=== PATIENT | female | born 1960 | race Caucasian/White ===

== ENCOUNTER 2020-03-11 12:39 | Inpatient (IN) | payer BC, SELFPAY ==
[~2020-03-11] VITALS: Ht 165.1 cm; Wt 153.8 kg
[2020-03-11 12:49] VITALS: Ht 165.1 cm; Wt 153.8 kg
[2020-03-11 14:57] LABS: BASOPHIL % 0.7 % (0.2-1.3); PLATELET COUNT 274 x10^3mcL (179-408)
[2020-03-11 15:05] LABS: RED CELL DISTRIBUTION WIDTH 17.3 % (12.3-17.7)
[2020-03-11 15:14] LABS: CALCIUM 8.9 mg/dL (8.5-10.1); CARBON DIOXIDE 28.2 mmol/L (21-32); CHLORIDE SERUM 99 mmol/L (98-107); CREATININE SERUM 0.9 mg/dL (0.6-1.0); GFR1 > 60 mL/min; GLUCOSE SERUM 119 mg/dL (74-106); POTASSIUM SERUM 4.6 mmol/L (3.5-5.1); SODIUM SERUM 138 mmol/L (136-145)
[2020-03-11 15:19] LABS: ALKALINE PHOSPHATASE 93 U/L (46-116); ALT/SGPT 26 U/L (14-59); AST/SGOT 50 U/L (15-37); BILIRUBIN TOTAL 0.83 mg/dL (0.20-1.00); TOTAL PROTEIN, SERUM 8.2 g/dL (6.4-8.2)
[2020-03-11 15:21] LABS: ALBUMIN 2.9 g/dL (3.4-5.0)
[2020-03-11 15:22] LABS: LACTIC DEHYDROGENASE (LDH) 697 U/L (100-190)
[2020-03-11 21:21] VITALS: BP 128/68
[2020-03-12] VITALS (7 sets, daily range): BP systolic 106–153; BP diastolic 65–84
[2020-03-12 06:04] LABS: BASOPHIL % 0.4 % (0.2-1.3); PLATELET COUNT 289 x10^3mcL (179-408)
[2020-03-12 06:09] LABS: RED CELL DISTRIBUTION WIDTH 17.3 % (12.3-17.7)
[2020-03-12 06:25] LABS: CALCIUM 8.7 mg/dL (8.5-10.1); CARBON DIOXIDE 34.9 mmol/L (21-32); CHLORIDE SERUM 99 mmol/L (98-107); CREATININE SERUM 0.8 mg/dL (0.6-1.0); GFR1 > 60 mL/min; GLUCOSE SERUM 113 mg/dL (74-106); POTASSIUM SERUM 4.3 mmol/L (3.5-5.1); SODIUM SERUM 139 mmol/L (136-145)
[2020-03-13] VITALS (21 sets, daily range): BP systolic 103–126; BP diastolic 62–82
[2020-03-13 13:00] LABS: BASOPHIL % 0.3 % (0.2-1.3); PLATELET COUNT 208 x10^3mcL (179-408)
[2020-03-13 13:06] LABS: RED CELL DISTRIBUTION WIDTH 16.2 % (12.3-17.7)
[2020-03-13 13:09] LABS: CALCIUM 8.5 mg/dL (8.5-10.1); CARBON DIOXIDE 31.6 mmol/L (21-32); CHLORIDE SERUM 101 mmol/L (98-107); CREATININE SERUM 0.8 mg/dL (0.6-1.0); GFR1 > 60 mL/min; GLUCOSE SERUM 114 mg/dL (74-106); MAGNESIUM 2.4 mg/dL (1.8-2.4); POTASSIUM SERUM 4.5 mmol/L (3.5-5.1); SODIUM SERUM 139 mmol/L (136-145)
[2020-03-14] VITALS (12 sets, daily range): BP systolic 114–159; BP diastolic 59–82
[2020-03-14 02:00] LABS: T3 TOTAL 0.52 ng/mL
[2020-03-14 02:11] LABS: FREE T4 1.28 ng/dL (0.76-1.46); FREE THYROXINE INDEX 2.4 ug/dL (1.4-4.5); T4(THYROXINE) 7.2 ug/dL (4.7-13.3)
[2020-03-14 02:19] LABS: CHOLESTEROL/HDL RATIO 4.9
[2020-03-14 07:04] LABS: PLATELET COUNT 152 x10^3mcL (179-408)
[2020-03-14 07:22] LABS: CALCIUM 8.7 mg/dL (8.5-10.1); CARBON DIOXIDE 27.5 mmol/L (21-32); CHLORIDE SERUM 101 mmol/L (98-107); CREATININE SERUM 0.9 mg/dL (0.6-1.0); GFR1 > 60 mL/min; GLUCOSE SERUM 106 mg/dL (74-106); MAGNESIUM 2.6 mg/dL (1.8-2.4); POTASSIUM SERUM 4.2 mmol/L (3.5-5.1); SODIUM SERUM 139 mmol/L (136-145)
[2020-03-14 10:58] LABS: RED CELL DISTRIBUTION WIDTH 16.7 % (12.3-17.7)
[2020-03-15] VITALS (10 sets, daily range): BP systolic 118–158; BP diastolic 64–82
[2020-03-15 06:32] LABS: BASOPHIL % 1.1 % (0.2-1.3); PLATELET COUNT 151 x10^3mcL (179-408)
[2020-03-15 06:51] LABS: MONOCYTE 8 % (0-7); SEGMENTED NEUTROPHILS 85 % (37-75)
[2020-03-15 06:52] LABS: rbc morphology (normal/abnorm) NORMAL (NORMAL)
[2020-03-15 07:08] LABS: RED CELL DISTRIBUTION WIDTH 17.3 % (12.3-17.7)
[2020-03-15 07:49] LABS: ALKALINE PHOSPHATASE 66 U/L (46-116); ALT/SGPT 19 U/L (14-59); AST/SGOT 22 U/L (15-37); BILIRUBIN TOTAL 0.85 mg/dL (0.20-1.00); CALCIUM 8.8 mg/dL (8.5-10.1); CHLORIDE SERUM 101 mmol/L (98-107); CREATININE SERUM 0.9 mg/dL (0.6-1.0); GFR1 > 60 mL/min; GLUCOSE SERUM 161 mg/dL (74-106); SODIUM SERUM 138 mmol/L (136-145); TOTAL PROTEIN, SERUM 7.4 g/dL (6.4-8.2)
[2020-03-15 07:53] LABS: ALBUMIN 2.5 g/dL (3.4-5.0)
[2020-03-15 14:03] LABS: BAND NEUTROPHIL 0 % (0-10)
[2020-03-16] VITALS (9 sets, daily range): BP systolic 123–154; BP diastolic 66–78
[2020-03-16 07:20] LABS: CALCIUM 8.9 mg/dL (8.5-10.1); CARBON DIOXIDE 29.4 mmol/L (21-32); CHLORIDE SERUM 100 mmol/L (98-107); CREATININE SERUM 0.8 mg/dL (0.6-1.0); GFR1 > 60 mL/min; GLUCOSE SERUM 170 mg/dL (74-106); POTASSIUM SERUM 4.2 mmol/L (3.5-5.1); SODIUM SERUM 137 mmol/L (136-145)
[2020-03-16 10:55] LABS: BASOPHIL % 0.6 % (0.2-1.3); PLATELET COUNT 152 x10^3mcL (179-408)
[2020-03-16 12:56] LABS: RED CELL DISTRIBUTION WIDTH 17.4 % (12.3-17.7)
[2020-03-17] VITALS (7 sets, daily range): BP systolic 109–141; BP diastolic 65–84
[2020-03-17 07:13] LABS: BASOPHIL % 0.4 % (0.2-1.3); PLATELET COUNT 152 x10^3mcL (179-408)
[2020-03-17 07:39] LABS: CALCIUM 9.3 mg/dL (8.5-10.1); CHLORIDE SERUM 102 mmol/L (98-107); CREATININE SERUM 0.8 mg/dL (0.6-1.0); GFR1 > 60 mL/min; GLUCOSE SERUM 151 mg/dL (74-106); POTASSIUM SERUM 4.7 mmol/L (3.5-5.1); SODIUM SERUM 138 mmol/L (136-145)
[2020-03-17 08:17] LABS: RED CELL DISTRIBUTION WIDTH 17.1 % (12.3-17.7)
[2020-03-17 13:27] LABS: rbc morphology (normal/abnorm) NORMAL (NORMAL)
[2020-03-18] VITALS (7 sets, daily range): BP systolic 99–150; BP diastolic 56–83
[2020-03-18 07:07] LABS: BASOPHIL % 0.3 % (0.2-1.3); PLATELET COUNT 153 x10^3mcL (179-408)
[2020-03-18 07:14] LABS: CALCIUM 9.4 mg/dL (8.5-10.1); CARBON DIOXIDE 31.1 mmol/L (21-32); CHLORIDE SERUM 101 mmol/L (98-107); CREATININE SERUM 0.8 mg/dL (0.6-1.0); GFR1 > 60 mL/min; GLUCOSE SERUM 121 mg/dL (74-106); POTASSIUM SERUM 5.2 mmol/L (3.5-5.1); SODIUM SERUM 137 mmol/L (136-145)
[2020-03-18 07:25] LABS: RED CELL DISTRIBUTION WIDTH 16.8 % (12.3-17.7)
[2020-03-19] VITALS (9 sets, daily range): BP systolic 119–189; BP diastolic 54–77
[2020-03-19 06:58] LABS: CALCIUM 9.2 mg/dL (8.5-10.1); CARBON DIOXIDE 29.1 mmol/L (21-32); CHLORIDE SERUM 101 mmol/L (98-107); CREATININE SERUM 0.9 mg/dL (0.6-1.0); GFR1 > 60 mL/min; GLUCOSE SERUM 114 mg/dL (74-106); POTASSIUM SERUM 4.8 mmol/L (3.5-5.1); SODIUM SERUM 136 mmol/L (136-145)
[2020-03-19 07:00] LABS: BASOPHIL % 0.2 % (0.2-1.3); PLATELET COUNT 136 x10^3mcL (179-408)
[2020-03-19 08:00] LABS: RED CELL DISTRIBUTION WIDTH 16.8 % (12.3-17.7)
[2020-03-20] VITALS (11 sets, daily range): BP systolic 117–170; BP diastolic 68–91
[2020-03-20 06:28] LABS: BASOPHIL % 0.1 % (0.2-1.3); PLATELET COUNT 138 x10^3mcL (179-408)
[2020-03-20 06:30] LABS: RED CELL DISTRIBUTION WIDTH 16.5 % (12.3-17.7)
[2020-03-20 06:50] LABS: ALKALINE PHOSPHATASE 90 U/L (46-116); ALT/SGPT 129 U/L (14-59); AST/SGOT 28 U/L (15-37); BILIRUBIN TOTAL 1.03 mg/dL (0.20-1.00); CARBON DIOXIDE 31.9 mmol/L (21-32); CHLORIDE SERUM 101 mmol/L (98-107); CREATININE SERUM 0.7 mg/dL (0.6-1.0); GFR1 > 60 mL/min; GLUCOSE SERUM 153 mg/dL (74-106); POTASSIUM SERUM 5.2 mmol/L (3.5-5.1); SODIUM SERUM 137 mmol/L (136-145)
[2020-03-20 06:58] LABS: ALBUMIN 2.5 g/dL (3.4-5.0)
[2020-03-21] VITALS (8 sets, daily range): BP systolic 120–148; BP diastolic 56–77
[2020-03-21 06:29] LABS: PLATELET COUNT 185 x10^3mcL (179-408)
[2020-03-21 06:32] LABS: BASOPHIL % 0 % (0.2-1.3); RED CELL DISTRIBUTION WIDTH 16.2 % (12.3-17.7)
[2020-03-21 06:48] LABS: CALCIUM 9.2 mg/dL (8.5-10.1); CARBON DIOXIDE 32.7 mmol/L (21-32); CHLORIDE SERUM 102 mmol/L (98-107); CREATININE SERUM 0.6 mg/dL (0.6-1.0); GFR1 > 60 mL/min; GLUCOSE SERUM 119 mg/dL (74-106); POTASSIUM SERUM 5.2 mmol/L (3.5-5.1); SODIUM SERUM 139 mmol/L (136-145)
[2020-03-22] VITALS (9 sets, daily range): BP systolic 119–136; BP diastolic 54–88
[2020-03-22 17:14] LABS: CALCIUM 8.2 mg/dL (8.5-10.1); CARBON DIOXIDE 30.2 mmol/L (21-32); CHLORIDE SERUM 108 mmol/L (98-107); CREATININE SERUM 0.6 mg/dL (0.6-1.0); GFR1 > 60 mL/min; GLUCOSE SERUM 136 mg/dL (74-106); POTASSIUM SERUM 4.2 mmol/L (3.5-5.1); SODIUM SERUM 143 mmol/L (136-145)
[2020-03-22 19:43] LABS: BASOPHIL % 0.3 % (0.2-1.3); PLATELET COUNT 209 x10^3mcL (179-408)
[2020-03-22 19:47] LABS: RED CELL DISTRIBUTION WIDTH 16.3 % (12.3-17.7)
[2020-03-23] VITALS (7 sets, daily range): BP systolic 126–191; BP diastolic 59–87
[2020-03-23 08:59] LABS: BASOPHIL % 1.1 % (0.2-1.3); PLATELET COUNT 293 x10^3mcL (179-408)
[2020-03-23 09:08] LABS: RED CELL DISTRIBUTION WIDTH 16.8 % (12.3-17.7)
[2020-03-23 09:21] LABS: CALCIUM 9.7 mg/dL (8.5-10.1); CARBON DIOXIDE 33.3 mmol/L (21-32); CHLORIDE SERUM 101 mmol/L (98-107); CREATININE SERUM 0.6 mg/dL (0.6-1.0); GFR1 > 60 mL/min; GLUCOSE SERUM 157 mg/dL (74-106); MAGNESIUM 2.3 mg/dL (1.8-2.4); POTASSIUM SERUM 4.2 mmol/L (3.5-5.1); SODIUM SERUM 137 mmol/L (136-145)
[2020-03-24 03:45] VITALS: BP 147/69
[2020-03-24 06:05] LABS: BASOPHIL % 0.3 % (0.2-1.3)
[2020-03-24 06:21] LABS: PLATELET COUNT 196 x10^3mcL (179-408); RED CELL DISTRIBUTION WIDTH 16.7 % (12.3-17.7)
[2020-03-24 06:52] LABS: ALKALINE PHOSPHATASE 109 U/L (46-116); ALT/SGPT 76 U/L (14-59); AST/SGOT 23 U/L (15-37); BILIRUBIN TOTAL 1.25 mg/dL (0.20-1.00); CALCIUM 9.3 mg/dL (8.5-10.1); CHLORIDE SERUM 101 mmol/L (98-107); CREATININE SERUM 0.6 mg/dL (0.6-1.0); GFR1 > 60 mL/min; GLUCOSE SERUM 163 mg/dL (74-106); POTASSIUM SERUM 4.2 mmol/L (3.5-5.1); SODIUM SERUM 137 mmol/L (136-145); TOTAL PROTEIN, SERUM 7.1 g/dL (6.4-8.2)
[2020-03-24 06:55] LABS: ALBUMIN 2.5 g/dL (3.4-5.0)
[2020-03-24 15:07] VITALS: BP 140/72
[2020-03-24 19:30] VITALS: BP 148/76
[2020-03-24 20:40] VITALS: BP 164/82
[2020-03-24 23:13] VITALS: BP 145/81
[2020-03-25 02:24] VITALS: BP 128/72
[2020-03-25 03:59] VITALS: BP 119/70; BP 144/81
[2020-03-25 06:59] LABS: BASOPHIL % 1.1 % (0.2-1.3)
[2020-03-25 08:05] LABS: CALCIUM 8.9 mg/dL (8.5-10.1); CARBON DIOXIDE 33.7 mmol/L (21-32); CHLORIDE SERUM 102 mmol/L (98-107); CREATININE SERUM 0.7 mg/dL (0.6-1.0); GFR1 > 60 mL/min; GLUCOSE SERUM 105 mg/dL (74-106); POTASSIUM SERUM 3.6 mmol/L (3.5-5.1); SODIUM SERUM 140 mmol/L (136-145)
[2020-03-25 08:20] LABS: PLATELET COUNT 110 x10^3mcL (179-408); RED CELL DISTRIBUTION WIDTH 16.3 % (12.3-17.7)
[2020-03-25 08:45] VITALS: BP 102/59
[2020-03-25 16:30] VITALS: BP 148/83
[2020-03-25 21:20] VITALS: BP 133/73
[2020-03-26] VITALS (9 sets, daily range): BP systolic 88–151; BP diastolic 45–79
[2020-03-26 06:21] LABS: BASOPHIL % 0.1 % (0.2-1.3)
[2020-03-26 06:29] LABS: CALCIUM 9.2 mg/dL (8.5-10.1); CARBON DIOXIDE 30.4 mmol/L (21-32); CREATININE SERUM 0.6 mg/dL (0.6-1.0); GFR1 > 60 mL/min; GLUCOSE SERUM 135 mg/dL (74-106); MAGNESIUM 2.2 mg/dL (1.8-2.4)
[2020-03-26 06:31] LABS: PLATELET COUNT 116 x10^3mcL (179-408); RED CELL DISTRIBUTION WIDTH 16.8 % (12.3-17.7)
[2020-03-26 06:55] LABS: CHLORIDE SERUM 99 mmol/L (98-107); POTASSIUM SERUM 4.2 mmol/L (3.5-5.1); SODIUM SERUM 141 mmol/L (136-145)
[2020-03-27] VITALS (9 sets, daily range): BP systolic 93–154; BP diastolic 34–71
[2020-03-27 06:40] LABS: CALCIUM 8.8 mg/dL (8.5-10.1); CARBON DIOXIDE 29.5 mmol/L (21-32); CHLORIDE SERUM 104 mmol/L (98-107); CREATININE SERUM 0.8 mg/dL (0.6-1.0); GFR1 > 60 mL/min; GLUCOSE SERUM 110 mg/dL (74-106); MAGNESIUM 2.2 mg/dL (1.8-2.4); POTASSIUM SERUM 3.8 mmol/L (3.5-5.1); SODIUM SERUM 139 mmol/L (136-145)
[2020-03-27 06:49] LABS: BASOPHIL % 0.3 % (0.2-1.3)
[2020-03-27 07:08] LABS: PLATELET COUNT 92 x10^3mcL (179-408); RED CELL DISTRIBUTION WIDTH 16.6 % (12.3-17.7)
[2020-03-28] VITALS (9 sets, daily range): BP systolic 103–186; BP diastolic 47–81
[2020-03-28 06:56] LABS: CALCIUM 8.9 mg/dL (8.5-10.1); CARBON DIOXIDE 28.1 mmol/L (21-32); CHLORIDE SERUM 99 mmol/L (98-107); CREATININE SERUM 0.6 mg/dL (0.6-1.0); GFR1 > 60 mL/min; GLUCOSE SERUM 119 mg/dL (74-106); POTASSIUM SERUM 3.8 mmol/L (3.5-5.1); SODIUM SERUM 133 mmol/L (136-145)
[2020-03-28 07:04] LABS: BASOPHIL % 0.4 % (0.2-1.3)
[2020-03-28 08:06] LABS: PLATELET COUNT 98 x10^3mcL (179-408); RED CELL DISTRIBUTION WIDTH 16.7 % (12.3-17.7)
[2020-03-29] VITALS (7 sets, daily range): BP systolic 97–176; BP diastolic 45–79
[2020-03-29 07:01] LABS: BASOPHIL % 0.6 % (0.2-1.3)
[2020-03-29 07:14] LABS: CALCIUM 8.9 mg/dL (8.5-10.1); CARBON DIOXIDE 28.9 mmol/L (21-32); CHLORIDE SERUM 100 mmol/L (98-107); CREATININE SERUM 0.6 mg/dL (0.6-1.0); GFR1 > 60 mL/min; GLUCOSE SERUM 113 mg/dL (74-106); POTASSIUM SERUM 3.8 mmol/L (3.5-5.1); SODIUM SERUM 134 mmol/L (136-145)
[2020-03-29 07:17] LABS: PLATELET COUNT 124 x10^3mcL (179-408); RED CELL DISTRIBUTION WIDTH 15.9 % (12.3-17.7)
[2020-03-30] VITALS (8 sets, daily range): BP systolic 105–183; BP diastolic 49–94
[2020-03-30 07:19] LABS: BASOPHIL % 0.3 % (0.2-1.3); PLATELET COUNT 153 x10^3mcL (179-408)
[2020-03-30 07:22] LABS: CALCIUM 9.4 mg/dL (8.5-10.1); CARBON DIOXIDE 27.9 mmol/L (21-32); CHLORIDE SERUM 96 mmol/L (98-107); CREATININE SERUM 0.7 mg/dL (0.6-1.0); GFR1 > 60 mL/min; GLUCOSE SERUM 92 mg/dL (74-106); POTASSIUM SERUM 3.4 mmol/L (3.5-5.1); SODIUM SERUM 126 mmol/L (136-145)
[2020-03-30 07:30] LABS: RED CELL DISTRIBUTION WIDTH 16.6 % (12.3-17.7)
[2020-03-31] VITALS (9 sets, daily range): BP systolic 101–183; BP diastolic 46–80
[2020-03-31 06:40] LABS: PLATELET COUNT 141 x10^3mcL (179-408)
[2020-03-31 06:53] LABS: RED CELL DISTRIBUTION WIDTH 16.6 % (12.3-17.7)
[2020-03-31 07:08] LABS: CARBON DIOXIDE 26.2 mmol/L (21-32); CREATININE SERUM 1.4 mg/dL (0.6-1.0); POTASSIUM SERUM 3.7 mmol/L (3.5-5.1)
[2020-03-31 07:46] LABS: BAND NEUTROPHIL 1 % (0-10); MONOCYTE 5 % (0-7); SEGMENTED NEUTROPHILS 85 % (37-75); rbc morphology (normal/abnorm) ABNORMAL (NORMAL)
[2020-04-01] VITALS (12 sets, daily range): BP systolic 108–169; BP diastolic 55–86
[2020-04-01 06:12] LABS: CARBON DIOXIDE 29.3 mmol/L (21-32); CHLORIDE SERUM 102 mmol/L (98-107); CREATININE SERUM 0.8 mg/dL (0.6-1.0); GFR1 > 60 mL/min; GLUCOSE SERUM 87 mg/dL (74-106); POTASSIUM SERUM 3.7 mmol/L (3.5-5.1); SODIUM SERUM 138 mmol/L (136-145)
[2020-04-01 13:14] LABS: BASOPHIL % 0.5 % (0.2-1.3); PLATELET COUNT 140 x10^3mcL (179-408)
[2020-04-01 13:16] LABS: RED CELL DISTRIBUTION WIDTH 16.8 % (12.3-17.7)
[2020-04-02] VITALS (9 sets, daily range): BP systolic 112–184; BP diastolic 53–88
[2020-04-02 06:19] LABS: BASOPHIL % 0.7 % (0.2-1.3); PLATELET COUNT 139 x10^3mcL (179-408)
[2020-04-02 06:33] LABS: RED CELL DISTRIBUTION WIDTH 16.6 % (12.3-17.7)
[2020-04-02 07:56] LABS: CALCIUM 9.1 mg/dL (8.5-10.1); CARBON DIOXIDE 30.2 mmol/L (21-32); CHLORIDE SERUM 103 mmol/L (98-107); CREATININE SERUM 0.7 mg/dL (0.6-1.0); GFR1 > 60 mL/min; GLUCOSE SERUM 105 mg/dL (74-106); SODIUM SERUM 140 mmol/L (136-145)
[2020-04-03] VITALS (11 sets, daily range): BP systolic 112–182; BP diastolic 61–91
[2020-04-03 06:31] LABS: BASOPHIL % 0.7 % (0.2-1.3); PLATELET COUNT 208 x10^3mcL (179-408)
[2020-04-03 06:35] LABS: CALCIUM 9.7 mg/dL (8.5-10.1); CARBON DIOXIDE 31.7 mmol/L (21-32); CHLORIDE SERUM 102 mmol/L (98-107); CREATININE SERUM 0.7 mg/dL (0.6-1.0); GFR1 > 60 mL/min; GLUCOSE SERUM 102 mg/dL (74-106); POTASSIUM SERUM 4.1 mmol/L (3.5-5.1); SODIUM SERUM 139 mmol/L (136-145)
[2020-04-03 06:57] LABS: RED CELL DISTRIBUTION WIDTH 16.4 % (12.3-17.7)
[2020-04-04] VITALS (8 sets, daily range): BP systolic 105–187; BP diastolic 63–92
[2020-04-04 05:23] LABS: BASOPHIL % 0.4 % (0.2-1.3); PLATELET COUNT 219 x10^3mcL (179-408)
[2020-04-04 05:29] LABS: CALCIUM 9.6 mg/dL (8.5-10.1); CARBON DIOXIDE 31.9 mmol/L (21-32); CHLORIDE SERUM 97 mmol/L (98-107); CREATININE SERUM 0.7 mg/dL (0.6-1.0); GFR1 > 60 mL/min; GLUCOSE SERUM 119 mg/dL (74-106); POTASSIUM SERUM 4.2 mmol/L (3.5-5.1)
[2020-04-04 05:30] LABS: SODIUM SERUM 136 mmol/L (136-145)
[2020-04-04 05:35] LABS: RED CELL DISTRIBUTION WIDTH 16.6 % (12.3-17.7)
[2020-04-04 17:19] LABS: UA SPECIFIC GRAVITY 1.025 (1.005-1.035); microscopic required? YES; urine erythrocyte 2+ (NEGATIVE)
[2020-04-05] VITALS (10 sets, daily range): BP systolic 92–164; BP diastolic 44–65
[2020-04-05 07:23] LABS: BASOPHIL % 1.2 % (0.2-1.3); PLATELET COUNT 276 x10^3mcL (179-408)
[2020-04-05 07:24] LABS: RED CELL DISTRIBUTION WIDTH 16.6 % (12.3-17.7)
[2020-04-05 07:38] LABS: CALCIUM 9.6 mg/dL (8.5-10.1); CARBON DIOXIDE 30.4 mmol/L (21-32); CHLORIDE SERUM 99 mmol/L (98-107); GFR1 > 60 mL/min; GLUCOSE SERUM 115 mg/dL (74-106); POTASSIUM SERUM 4.1 mmol/L (3.5-5.1); SODIUM SERUM 135 mmol/L (136-145)
[2020-04-06] VITALS (9 sets, daily range): BP systolic 99–124; BP diastolic 42–61
[2020-04-06 07:07] LABS: BASOPHIL % 1.1 % (0.2-1.3); PLATELET COUNT 218 x10^3mcL (179-408)
[2020-04-06 07:27] LABS: CALCIUM 8.8 mg/dL (8.5-10.1); CARBON DIOXIDE 28.6 mmol/L (21-32); CHLORIDE SERUM 98 mmol/L (98-107); CREATININE SERUM 0.8 mg/dL (0.6-1.0); GFR1 > 60 mL/min; GLUCOSE SERUM 95 mg/dL (74-106); MAGNESIUM 2.1 mg/dL (1.8-2.4); POTASSIUM SERUM 3.7 mmol/L (3.5-5.1); SODIUM SERUM 133 mmol/L (136-145)
[2020-04-06 07:34] LABS: RED CELL DISTRIBUTION WIDTH 17.1 % (12.3-17.7)
[2020-04-07 00:11] VITALS: BP 146/62
[2020-04-07 04:00] VITALS: BP 90/40
[2020-04-07 04:23] VITALS: BP 119/57
[2020-04-07 06:35] LABS: CALCIUM 9.1 mg/dL (8.5-10.1); CARBON DIOXIDE 27.6 mmol/L (21-32); CHLORIDE SERUM 97 mmol/L (98-107); CREATININE SERUM 0.8 mg/dL (0.6-1.0); GFR1 > 60 mL/min; GLUCOSE SERUM 136 mg/dL (74-106); MAGNESIUM 2.3 mg/dL (1.8-2.4); POTASSIUM SERUM 3.4 mmol/L (3.5-5.1); SODIUM SERUM 132 mmol/L (136-145)
[2020-04-07 06:53] LABS: BASOPHIL % 1.5 % (0.2-1.3); PLATELET COUNT 343 x10^3mcL (179-408)
[2020-04-07 07:24] LABS: RED CELL DISTRIBUTION WIDTH 16.8 % (12.3-17.7)
[2020-04-07 09:44] VITALS: BP 125/73
[2020-04-07 10:25] VITALS: BP 107/51
[2020-04-07 20:30] VITALS: BP 130/76
[2020-04-08] VITALS: BP 148/63
[2020-04-08 04:00] VITALS: BP 165/70
[2020-04-08 14:00] VITALS: BP 156/99
[2020-04-08 16:14] VITALS: BP 150/70
[2020-04-08 20:44] VITALS: BP 147/82
[2020-04-09 05:38] VITALS: BP 136/66
[2020-04-09 07:02] LABS: CALCIUM 9.8 mg/dL (8.5-10.1); CARBON DIOXIDE 26.6 mmol/L (21-32); CHLORIDE SERUM 101 mmol/L (98-107); CREATININE SERUM 0.7 mg/dL (0.6-1.0); GFR1 > 60 mL/min; GLUCOSE SERUM 70 mg/dL (74-106); MAGNESIUM 2.3 mg/dL (1.8-2.4); POTASSIUM SERUM 3.5 mmol/L (3.5-5.1); SODIUM SERUM 141 mmol/L (136-145)
[2020-04-09 07:59] VITALS: BP 170/78
[2020-04-09 10:45] LABS: PLATELET COUNT 422 x10^3mcL (179-408); RED CELL DISTRIBUTION WIDTH 16.8 % (12.3-17.7)
[2020-04-09 11:33] VITALS: BP 115/73
[2020-04-09 16:04] VITALS: BP 129/77
[2020-04-09 21:27] VITALS: BP 168/76
[2020-04-10] VITALS: BP 131/55
[2020-04-10 05:44] VITALS: BP 99/63
[2020-04-10 05:46] VITALS: BP 133/53
[2020-04-10 07:21] LABS: BASOPHIL % 1.1 % (0.2-1.3)
[2020-04-10 07:38] LABS: PLATELET COUNT 437 x10^3mcL (179-408); RED CELL DISTRIBUTION WIDTH 16.4 % (12.3-17.7)
[2020-04-10 07:55] LABS: CARBON DIOXIDE 27.6 mmol/L (21-32); CHLORIDE SERUM 102 mmol/L (98-107); CREATININE SERUM 0.8 mg/dL (0.6-1.0); GFR1 > 60 mL/min; GLUCOSE SERUM 84 mg/dL (74-106); POTASSIUM SERUM 3.3 mmol/L (3.5-5.1); SODIUM SERUM 140 mmol/L (136-145)
[2020-04-10 08:09] VITALS: BP 150/63
[2020-04-10 11:50] VITALS: BP 129/68
[2020-04-10 16:04] VITALS: BP 130/69
[2020-04-11 08:15] VITALS: BP 147/71
[2020-04-11 08:47] LABS: BASOPHIL % 1.2 % (0.2-1.3)
[2020-04-11 09:04] LABS: C REACTIVE PROTEIN 1.5 mg/dL (<=0.9); CALCIUM 9.8 mg/dL (8.5-10.1); CARBON DIOXIDE 30.6 mmol/L (21-32); CHLORIDE SERUM 101 mmol/L (98-107); CREATININE SERUM 0.8 mg/dL (0.6-1.0); GFR1 > 60 mL/min; GLUCOSE SERUM 74 mg/dL (74-106); POTASSIUM SERUM 3.3 mmol/L (3.5-5.1); SODIUM SERUM 142 mmol/L (136-145)
[2020-04-11 09:58] LABS: PLATELET COUNT 471 x10^3mcL (179-408)
[2020-04-11 13:33] VITALS: BP 150/69
[2020-04-11 18:12] VITALS: BP 151/75
[2020-04-11 21:27] VITALS: BP 151/73
[2020-04-12 06:34] VITALS: BP 137/65
[2020-04-12 08:58] VITALS: BP 145/79
[2020-04-12 09:32] LABS: BASOPHIL % 1.4 % (0.2-1.3)
[2020-04-12 10:04] LABS: CALCIUM 9.8 mg/dL (8.5-10.1); CARBON DIOXIDE 27.8 mmol/L (21-32); CHLORIDE SERUM 103 mmol/L (98-107); CREATININE SERUM 0.8 mg/dL (0.6-1.0); GFR1 > 60 mL/min; GLUCOSE SERUM 68 mg/dL (74-106); POTASSIUM SERUM 3.8 mmol/L (3.5-5.1); SODIUM SERUM 143 mmol/L (136-145)
[2020-04-12 10:12] LABS: PLATELET COUNT 458 x10^3mcL (179-408); RED CELL DISTRIBUTION WIDTH 16.8 % (12.3-17.7)
[2020-04-12 11:48] VITALS: BP 150/80
[2020-04-12 16:49] VITALS: BP 135/69
[2020-04-12 20:45] VITALS: BP 139/79
[2020-04-13 05:29] VITALS: BP 147/76
[2020-04-13 08:03] LABS: BASOPHIL % 1.5 % (0.2-1.3)
[2020-04-13 08:04] LABS: CALCIUM 9.7 mg/dL (8.5-10.1); CARBON DIOXIDE 29.5 mmol/L (21-32); CHLORIDE SERUM 102 mmol/L (98-107); CREATININE SERUM 0.9 mg/dL (0.6-1.0); GFR1 > 60 mL/min; GLUCOSE SERUM 97 mg/dL (74-106); POTASSIUM SERUM 3.9 mmol/L (3.5-5.1); SODIUM SERUM 143 mmol/L (136-145)
[2020-04-13 08:38] VITALS: BP 117/64
[2020-04-13 09:02] LABS: PLATELET COUNT 445 x10^3mcL (179-408); RED CELL DISTRIBUTION WIDTH 17.3 % (12.3-17.7)
[2020-04-13 12:43] VITALS: BP 143/83
[2020-04-13 17:09] VITALS: BP 135/61
[2020-04-13 21:04] VITALS: BP 147/91
[2020-04-14 05:16] VITALS: BP 130/69
[2020-04-14 07:41] LABS: BASOPHIL % 1.5 % (0.2-1.3); PLATELET COUNT 274 x10^3mcL (179-408)
[2020-04-14 08:16] LABS: CALCIUM 9.8 mg/dL (8.5-10.1); CARBON DIOXIDE 26.1 mmol/L (21-32); CHLORIDE SERUM 103 mmol/L (98-107); CREATININE SERUM 0.7 mg/dL (0.6-1.0); GFR1 > 60 mL/min; GLUCOSE SERUM 84 mg/dL (74-106); POTASSIUM SERUM 3.8 mmol/L (3.5-5.1); SODIUM SERUM 141 mmol/L (136-145)
[2020-04-14 08:43] VITALS: BP 139/66
[2020-04-14 08:55] LABS: RED CELL DISTRIBUTION WIDTH 16.9 % (12.3-17.7)
[2020-04-14 12:05] VITALS: BP 127/60
[2020-04-14 16:21] VITALS: BP 125/69
[2020-04-14 20:48] VITALS: BP 127/63
[2020-04-15 05:46] VITALS: BP 134/68
[2020-04-15 09:26] VITALS: BP 147/74
[2020-04-15 11:58] VITALS: BP 122/68
[2020-04-15 17:03] VITALS: BP 122/62
[2020-04-15 21:42] VITALS: BP 130/65
[2020-04-16 05:20] VITALS: BP 135/71
[2020-04-16 06:54] LABS: BASOPHIL % 1.7 % (0.2-1.3); PLATELET COUNT 307 x10^3mcL (179-408)
[2020-04-16 07:33] LABS: CALCIUM 9.8 mg/dL (8.5-10.1); CARBON DIOXIDE 26.1 mmol/L (21-32); CHLORIDE SERUM 103 mmol/L (98-107); CREATININE SERUM 0.8 mg/dL (0.6-1.0); GFR1 > 60 mL/min; GLUCOSE SERUM 94 mg/dL (74-106); POTASSIUM SERUM 3.5 mmol/L (3.5-5.1); SODIUM SERUM 143 mmol/L (136-145)
[2020-04-16 08:23] LABS: RED CELL DISTRIBUTION WIDTH 17.1 % (12.3-17.7)
[2020-04-16 08:59] VITALS: BP 133/68
[2020-04-16 12:48] VITALS: BP 120/44
[2020-04-16 16:34] VITALS: BP 126/58
[2020-04-16 20:49] VITALS: BP 136/74
[2020-04-17 05:46] VITALS: BP 131/63
[2020-04-17 08:48] VITALS: BP 144/79
[2020-04-17 12:21] VITALS: BP 97/55
[2020-04-17 17:08] VITALS: BP 123/49
[2020-04-17 21:46] VITALS: BP 126/73
[2020-04-18 05:39] VITALS: BP 120/55
[2020-04-18 12:46] VITALS: BP 123/52
[2020-04-18] MEDS ORDERED: LOV40I SC (15:02)
[2020-04-18] MEDS ORDERED: COZ50 PO (15:02)
[2020-04-18 15:43] VITALS: BP 123/52
[2020-04-18 17:01] VITALS: BP 147/66
[2020-04-18 21:34] VITALS: BP 126/69
[2020-04-19 05:28] VITALS: BP 133/73
[2020-04-19 08:05] LABS: BASOPHIL % 1.3 % (0.2-1.3); PLATELET COUNT 273 x10^3mcL (179-408)
[2020-04-19 08:20] LABS: RED CELL DISTRIBUTION WIDTH 18.2 % (12.3-17.7)
[2020-04-19 08:21] VITALS: BP 137/75
[2020-04-19 08:37] LABS: CALCIUM 9.3 mg/dL (8.5-10.1); CARBON DIOXIDE 29.2 mmol/L (21-32); CHLORIDE SERUM 106 mmol/L (98-107); CREATININE SERUM 0.8 mg/dL (0.6-1.0); GFR1 > 60 mL/min; GLUCOSE SERUM 102 mg/dL (74-106); POTASSIUM SERUM 3.3 mmol/L (3.5-5.1); SODIUM SERUM 143 mmol/L (136-145)
[2020-04-19] MEDS ORDERED: SEROQUEL25 MG (11:26)
[2020-04-19 11:48] VITALS: BP 126/66
== END 2020-04-19 12:13 | DRG 870 ==
LOC: ED 12:39 → DU 16:09 → IC 16:09 → DU 03-12 13:53 → IC 03-13 09:27 → DU 04-08 14:10
PROVIDERS: Emergency Medicine; Family Medicine; Internal Medicine; ADMIT Internal Medicine; ATTEND Internal Medicine
PROC: 05HY33Z Insertion of Infusion Device into Upper Vein, Percutaneous Approach (ICD-10-PCS; principal; 2020-03-11)
PROC: 5A1955Z Respiratory Ventilation, Greater than 96 Consecutive Hours (ICD-10-PCS; 2020-03-12)
PROC: 0BH17EZ Insertion of Endotracheal Airway into Trachea, Via Natural or Artificial Opening (ICD-10-PCS; 2020-03-12)
PROC: 5A09357 Assistance with Respiratory Ventilation, Less than 24 Consecutive Hours, Continuous Positive Airway Pressure (ICD-10-PCS; 2020-03-12)
PROC: XW13325 Transfusion of Convalescent Plasma (Nonautologous) into Peripheral Vein, Percutaneous Approach, New Technology Group 5 (ICD-10-PCS; 2020-03-13)
DX: A41.9 Sepsis, unspecified organism (principal); J96.21 Acute and chronic respiratory failure with hypoxia; J96.22 Acute and chronic respiratory failure with hypercapnia; U07.1 COVID-19; J12.82 Pneumonia due to coronavirus disease 2019; R65.21 Severe sepsis with septic shock; G93.41 Metabolic encephalopathy; E44.0 Moderate protein-calorie malnutrition; E66.2 Morbid (severe) obesity with alveolar hypoventilation; Z68.42 Body mass index [BMI] 45.0-49.9, adult; E87.1 Hypo-osmolality and hyponatremia; N17.9 Acute kidney failure, unspecified; F32.9 Major depressive disorder, single episode, unspecified; Z71.3 Dietary counseling and surveillance
CPT/HCPCS: 31500; 36600; 82962; 83880; 84439; 85378; 87804; 97110-GP; 97116-GP; 97530-GP; A4628; G0378; J0360; J0456; J0461; J0696; J1100; J1200; J1265; J1650; J1940; J2060; J2185; J2250; J2370; J2543; J2704; J3010; J3370; J3490; J3535; J7030; J7040; J7042; J7050; J7060; U0003